=== PATIENT | female | born 1960 | race Caucasian/White ===

== ENCOUNTER 2024-04-08 12:59 | Emergency (ER) | payer MEDICARE, SELFPAY ==
[2024-04-08 13:28] VITALS: BP 141/63; PULSE 54; RESP 18; TEMP 36.9; O2SAT 100
[2024-04-08 13:35] VITALS: BP 141/63; PULSE 54; RESP 18; TEMP 36.9; O2SAT 100
--- NOTE | 2024-04-08 14:02 | ED.URI ---
HPI - URI/Sore Throat General Chief Complaint: Upper Respiratory Infection Stated Complaint: lt ear and throat pain Time Seen by Provider: 04/08/24 13:04 Source: patient Mode of arrival: ambulatory Limitations: no limitations History of Present Illness HPI Narrative: 63-year-old female presents to [facility] complaints of sore throat, left ear pressure, runny nose and dry cough for the past 2 days. Patient reports that she has been using warm salt water gargles with minimal relief. Patient reports that her [id number] had strep throat approximately 2 weeks ago. Patient denies fever, body aches, chills, nausea vomiting or diarrhea. Patient is a nonsmoker. Patient also has been taking [id number] Mucinex with little relief MD elicited complaint: cough, sore throat and rhinorrhea Onset (ago): day(s) (2) Able to tolerate fluids by mouth: Yes Exacerbating factors: swallowing Context: sick contacts Treatments prior to arrival: other (Warm saltwater gargles) Related Data Home Medications Medication Instructions Recorded Confirmed biotin 10,000 mcg chewable tablet mcg PO 04/08/24 bupropion HCl 150 mg 24 hr tablet, mg PO 04/08/24 extended release cholecalciferol (vitamin D3) 25 25 mcg PO DAILY 04/08/24 04/08/24 mcg (1,000 unit) tablet diltiazem HCl 120 mg mg PO 04/08/24 capsule,extended release 24 hr duloxetine 30 mg capsule,delayed mg PO 04/08/24 release ferrous sulfate 137 mg (45 mg mg PO 04/08/24 iron) tablet,extended release (Slow Fe) hydrochlorothiazide 25 mg tablet mg 04/08/24 lorazepam 0.5 mg tablet mg 04/08/24 losartan 100 mg tablet mg 04/08/24 multivit with minerals-iron 18 tablet PO 04/08/24 mg-folic ac 400 mcg-vit K 25 mcg tablet (Adults Multivitamin) naloxone 4 mg/actuation nasal spray intranasal 04/08/24 ondansetron HCl 4 mg tablet mg 04/08/24 pantoprazole 40 mg tablet,delayed mg PO 04/08/24 release pravastatin 10 mg tablet mg 04/08/24 quetiapine 50 mg tablet mg 04/08/24 tramadol 50 mg tablet mg 04/08/24 Allergies Allergy/AdvReac Type Severity Reaction Status Date / Time No Known Allergies Allergy Verified 04/08/24 13:30 Review of Systems Constitutional: Constitutional: Denies chills, Reports fatigue, Denies fever(s) and Denies weakness ENT: Denies vertigo, Denies dizziness, Denies epistaxis, Denies nasal congestion and Reports sore throat Respiratory: Respiratory: Reports cough, Denies dyspnea and Denies wheezing Gastrointestinal: Gastrointestinal: Denies diarrhea, Denies nausea and Denies vomiting Integumentary/Breasts: Skin/Breast: Denies erythema, Denies rash and Denies skin ulcer Neurologic: Denies dizziness, Denies syncope and Denies headache(s) PMF Family History Family History Father Hypertension, Onset Age: 88 Family history of malignant neoplasm of urinary bladder, Onset Age: 88 Patient's father is , Onset Age: 88 Mother Hypertension, Onset Age: 92 Family history of diabetes mellitus in first degree relative, Onset Age: 92 Family history of dementia, Onset Age: 92 Patient's mother is , Onset Age: 92 Sibling Hypertension Family history of diabetes mellitus in first degree relative Grandparent Hypertension, Onset Age: 79 Cerebrovascular accident, Onset Age: 56 Social History Social History Smoking status: Never smoker Second hand tobacco smoke exposure: No Alcohol intake: current Exam Const: General: healthy appearing and no acute distress Nutritional Appearance: well nourished Orientation/consciousness: patient oriented x3 Limitations: no limitations HENMT: Head: normal to inspection Ears: external ears normal, TM's normal bilaterally and EAC's normal Face/Nose/Sinus: Normal external nose present Face and sinus: normal facial exam and sinuses no
== END 2024-04-08 14:14 | disposition home or self-care (01) ==
PROVIDERS: Emergency Provider Nurse Practitioner Family
DX: B34.9 Viral infection, unspecified (principal)
CPT/HCPCS: 87081; 87880